=== PATIENT | female | born 1950 | race Caucasian/White ===

== ENCOUNTER 2025-01-02 15:14 | Outpatient (CLI) | payer MEDICARE | END 2025-01-02 15:15 | disposition home or self-care (01) | LOC: CSHWCC 15:14 | PROVIDERS: ATTEND Nurse Practitioner Family | DX: I87.312 Chronic venous hypertension (idiopathic) with ulcer of left lower extremity (principal); L97.821 Non-pressure chronic ulcer of other part of left lower leg limited to breakdown of skin; Z72.0 Tobacco use | CPT/HCPCS: 11042 ==

== ENCOUNTER 2025-01-23 15:45 | Outpatient (CLI) | payer MEDICARE | END 2025-01-23 15:46 | disposition home or self-care (01) | LOC: CSHWCC 15:45 | PROVIDERS: ATTEND Nurse Practitioner Family | DX: I87.312 Chronic venous hypertension (idiopathic) with ulcer of left lower extremity (principal); L97.821 Non-pressure chronic ulcer of other part of left lower leg limited to breakdown of skin; Z72.0 Tobacco use | CPT/HCPCS: 97597 ==

== ENCOUNTER 2025-02-06 14:25 | Outpatient (CLI) | payer MEDICARE | END 2025-02-06 14:26 | disposition home or self-care (01) | LOC: CSHWCC 14:25 | PROVIDERS: ATTEND Nurse Practitioner Family | DX: I87.312 Chronic venous hypertension (idiopathic) with ulcer of left lower extremity (principal); L97.821 Non-pressure chronic ulcer of other part of left lower leg limited to breakdown of skin; Z72.0 Tobacco use | CPT/HCPCS: 99212; G0463 ==